=== PATIENT | female | born 1955 | race Caucasian/White ===

== ENCOUNTER 2020-05-17 09:31 | Day surgery (SDC) | payer OTHER ==
[2020-04-29 13:15] VITALS: BMI 39.4
[2020-05-17] MEDS ORDERED: EPINEPHrine 1:1,000 1 MG/1 ML - 30ML VIAL (INJECTION) ONE (11:54)
[2020-05-17] MEDS ORDERED: BUPIVACAINE HCL/PF 0.25% (2.5MG/ML) 10 ML VIAL ONE (11:54)
[2020-05-17] MEDS ORDERED: SUCCINYLCHOLINE CHLORIDE 200 MG/10 ML SYRINGE ONE (13:02)
[2020-05-17] MEDS ORDERED: PROPOFOL 20 ML ONE ×2 (13:02→13:50)
[2020-05-17] MEDS ORDERED: MIDAZOLAM HCL 2 MG/2 ML SINGLE DOSE VIAL ONE ×2 (13:03→14:48)
[2020-05-17] MEDS ORDERED: oxyCODONE HCL 5 MG TABLET PO PRN ×2 (14:39)
[2020-05-17] MEDS ORDERED: PROMETHAZINE HCL 25 MG/1 ML VIAL IVPUSH PRN (14:39)
[2020-05-17] MEDS ORDERED: BUPIVACAINE HCL/PF 0.25% (2.5MG/ML) 10 ML VIAL IJ ONE (14:40)
[2020-05-17] MEDS ORDERED: KETOROLAC TROMETHAMINE 30 MG/1 ML VIAL IVPUSH ONE (14:56)
[2020-05-17] MEDS ORDERED: HYDROmorphone HCL/PF 1 MG/ML VIAL IVPUSH ONE (14:57)
[2020-05-17] MEDS ORDERED: HYDROmorphone HCL/PF 1 MG/ML VIAL ONE ×2 (14:59→15:17)
[2020-05-17] MEDS ORDERED: ONDANSETRON 4 MG/2 ML VIAL ONE (15:00)
[2020-05-17] MEDS ORDERED: ACETAMINOPHEN 1000 MG/100 ML VIAL (NON FORMULARY) IVPB ONE (15:12)
[2020-05-17] MEDS: ONDANSETRON 4 MG/2 ML VIAL IVPUSH PRN ×2 (15:20→17:04)
[2020-05-17] MEDS ORDERED: ALBUTEROL SO4 0.083% IH SOL 2.5 MG/3 ML VIAL.NEB. NEB ONE (15:34)
[2020-05-17] MEDS ORDERED: SODIUM CHLORIDE 1,000 ML IV SCH (17:30)
[2020-05-17] MEDS ORDERED: ALBUTEROL SO4 0.083% IH SOL 2.5 MG/3 ML VIAL.NEB. NEB PRN (17:42)
[2020-05-17] MEDS ORDERED: PATIENT'S OWN MEDICATION (NON-FORMULARY) (Ipratropium/Albuterol Sulfate 1 PUFF Inhaler) IH PRN (17:42)
[2020-05-17] MEDS: ALPRAZolam 1 MG TABLET PO SCH (21:29)
[2020-05-17] MEDS: GABAPENTIN 400 MG CAPSULE PO SCH (21:29)
[2020-05-17] MEDS ORDERED: QUEtiapine FUMARATE 100 MG TABLET (FP) PO SCH (22:00)
[2020-05-17] MEDS ORDERED: MONTELUKAST NA 10 MG TABLET PO SCH (22:00)
[2020-05-17] MEDS ORDERED: ATORVASTATIN CA 40 MG TABLET (FP) PO SCH (22:00)
[2020-05-18] MEDS ORDERED: PT OWN MED DRAWER 7, Y5N ONE (09:05)
[2020-05-18] MEDS: GABAPENTIN 400 MG CAPSULE PO SCH (09:36)
[2020-05-18] MEDS: ALPRAZolam 1 MG TABLET PO SCH (09:36)
[2020-05-18] MEDS ORDERED: VERAPAMIL HCL 180 MG E.R. TABLET PO SCH (10:00)
[2020-05-18] MEDS ORDERED: UMECLIDINIUM/VILANTEROL (ANORO) 62.5/25 MCG INHALER IH SCH (10:00)
[2020-05-18 11:11] VITALS: BP 119/60; PULSE 80; TEMP 98.2
== END 2020-05-18 12:35 | disposition home or self-care (01) ==
LOC: FASUSAT 09:31 → FM/S 15:59 → FASUSAT 05-18 12:35
PROVIDERS: ATTEND Orthopaedic Surgery Sports Medicine
PROC: 0SBC4ZZ Excision of Right Knee Joint, Percutaneous Endoscopic Approach (ICD-10-PCS; principal; 2020-05-17 14:04)
PROC: 0SBC4ZZ Excision of Right Knee Joint, Percutaneous Endoscopic Approach (ICD-10-PCS; 2020-05-17 14:04)
DX: S83.242A Other tear of medial meniscus, current injury, left knee, initial encounter (principal); M94.261 Chondromalacia, right knee; M65.861 Other synovitis and tenosynovitis, right lower leg; X58.XXXA Exposure to other specified factors, initial encounter; Y92.9 Unspecified place or not applicable; Y93.9 Activity, unspecified
CPT/HCPCS: 94760; 97116-GP; 97162-GP; J0131